=== PATIENT | female | born 1960 | race American Indian/Alaskan Native ===

== ENCOUNTER 2017-07-31 10:35 | Emergency (ER) | payer OTHER ==
[2017-07-31 10:35] VITALS: BMI 26.5
[2017-07-31 10:49] VITALS: RESP 18
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
[2017-07-31 12:41] VITALS: O2SAT 100
--- NOTE | 2017-07-31 12:44 | RAD ---
PROCEDURE: Cervical Spine Radiographs. HISTORY: Pain. COMPARISON: None. FINDINGS: BONES: Alignment maintained. No fracture. Dens Intact. DISC SPACES: Normal. SOFT TISSUES: Normal. No prevertebral soft tissue swelling. OTHER FINDINGS: None. IMPRESSION: Normal cervical spine radiographs
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
[2017-07-31 13:42] VITALS: BP 147/90; PULSE 82; TEMP 98.6
== END 2017-07-31 13:25 | disposition home or self-care (01) ==
LOC: ED 10:35
DX: S13.4XXA Sprain of ligaments of cervical spine, initial encounter (principal); S33.5XXA Sprain of ligaments of lumbar spine, initial encounter; V43.52XA Car driver injured in collision with other type car in traffic accident, initial encounter; Y92.410 Unspecified street and highway as the place of occurrence of the external cause